=== PATIENT | female | born 1955 | race Caucasian/White ===

== ENCOUNTER → 2019-01-05 | Outpatient (CLI) | payer BC | LOC: COL.RAD 10:11 | DX: M47.812 Spondylosis without myelopathy or radiculopathy, cervical region (principal); M89.38 Hypertrophy of bone, other site; M48.02 Spinal stenosis, cervical region ==

== ENCOUNTER → 2019-01-28 | Outpatient (CLI) | payer BC | LOC: COL.RAD 01-22 09:45 | DX: M51.34 Other intervertebral disc degeneration, thoracic region (principal); M51.24 Other intervertebral disc displacement, thoracic region ==

== ENCOUNTER → 2019-02-08 | Outpatient (CLI) | payer BC | LOC: MHCPAIN 09:48 | DX: G89.29 Other chronic pain (principal); M47.814 Spondylosis without myelopathy or radiculopathy, thoracic region; M47.812 Spondylosis without myelopathy or radiculopathy, cervical region | CPT/HCPCS: G0463 ==

== ENCOUNTER → 2019-02-11 | Outpatient (CLI) | payer BC | LOC: MHCPAIN 08:54 | DX: M47.814 Spondylosis without myelopathy or radiculopathy, thoracic region (principal); M54.14 Radiculopathy, thoracic region ==

== ENCOUNTER → 2019-02-18 | Outpatient (CLI) | payer BC | LOC: MHCPAIN 09:49 | DX: M47.814 Spondylosis without myelopathy or radiculopathy, thoracic region (principal); G89.29 Other chronic pain | CPT/HCPCS: G0463 ==

== ENCOUNTER → 2019-04-05 | Outpatient (CLI) | payer BC | LOC: MHCPAIN 08:59 | DX: G89.29 Other chronic pain (principal); M47.814 Spondylosis without myelopathy or radiculopathy, thoracic region | CPT/HCPCS: G0463 ==

== ENCOUNTER → 2019-04-08 | Outpatient (CLI) | payer BC | LOC: MHCPAIN 12:56 | DX: M47.814 Spondylosis without myelopathy or radiculopathy, thoracic region (principal); M54.12 Radiculopathy, cervical region ==

== ENCOUNTER → 2019-04-29 | Outpatient (CLI) | payer BC | LOC: MHCPAIN 04-19 15:33 | DX: M47.814 Spondylosis without myelopathy or radiculopathy, thoracic region (principal); M54.12 Radiculopathy, cervical region; G89.29 Other chronic pain | CPT/HCPCS: G0463 ==

== ENCOUNTER → 2019-07-08 | Outpatient (CLI) | payer BC | LOC: MHCPAIN 13:39 | DX: M54.6 Pain in thoracic spine (principal) | CPT/HCPCS: J1100; J2250; J3010 ==

== ENCOUNTER → 2019-08-31 | Outpatient (CLI) | payer BC | LOC: MHCPAIN 09:42 | DX: M47.814 Spondylosis without myelopathy or radiculopathy, thoracic region (principal); G89.29 Other chronic pain | CPT/HCPCS: G0463 ==

== ENCOUNTER → 2019-09-23 | Outpatient (CLI) | payer BC | LOC: MHCPAIN 12:13 | DX: M47.814 Spondylosis without myelopathy or radiculopathy, thoracic region (principal) | CPT/HCPCS: J1040; J1100; J2250; J3010 ==

== ENCOUNTER → 2023-07-29 | Outpatient (CLI) | payer MEDICARE, OTHER ==
[~2023-07-29] MED LIST: CEPHALEXIN500 M1 PO; CRESTOR5 MG PO; FLEXERIL 1010 MG/TAB PO; HCTZ 25MG TAB25 MG PO; NAPROSYN500 MG PO; PERCOCET 325 MG1 TA2 PO; PRIL40 PO; TIROSINT150 MC1 PO; TOPROL XL 50MG50 MG PO; ZOFRAN ODT4 MG PO
== END ==
LOC: MHCPAIN 14:05
DX: M47.897 Other spondylosis, lumbosacral region (principal); M54.16 Radiculopathy, lumbar region; M51.36 Other intervertebral disc degeneration, lumbar region; I10 Essential (primary) hypertension
CPT/HCPCS: G0463

== ENCOUNTER → 2023-08-07 | Outpatient (CLI) | payer MEDICARE, OTHER ==
[~2023-08-07] MED LIST changes: +Iohexol 300 - 10 ML VIAL ONE; +Lidocaine PF 2% (20 MG/ML) 2 ML VIAL ONE
== END ==
LOC: MHCPAIN 12:38
DX: M54.16 Radiculopathy, lumbar region (principal)
CPT/HCPCS: J1100; Q9967

== ENCOUNTER → 2023-10-30 | Outpatient (CLI) | payer MEDICARE, OTHER ==
[~2023-10-30] MED LIST changes: -Iohexol 300 - 10 ML VIAL ONE; -Lidocaine PF 2% (20 MG/ML) 2 ML VIAL ONE
== END ==
LOC: MHCPAIN 10:48
DX: M47.817 Spondylosis without myelopathy or radiculopathy, lumbosacral region (principal); M54.50 Low back pain, unspecified
CPT/HCPCS: J0665

== ENCOUNTER 2024-03-11 14:40 | Outpatient (CLI) | payer MEDICARE, OTHER ==
[~2024-03-11] VITALS: Ht 157.5 cm; Wt 72.7 kg
[2024-03-11] MEDS ORDERED: NS Flush 25 ML IV Bag IV PRN (15:00)
[2024-03-11] MEDS ORDERED: LEVOXYL0.1 MG PO (15:06)
[2024-03-11] MEDS ORDERED: NORCO 325 MG-101 TAB PO (15:07)
[2024-03-11] MEDS ORDERED: CYMBALTA 60MG60 MG PO (15:08)
[2024-03-11] MEDS ORDERED: AMBIEN 10MG10 MG PO (15:08)
[2024-03-11] MEDS ORDERED: VITAMIN C500 MG PO (15:08)
[2024-03-11] MEDS ORDERED: ATIVAN 0.50.5 MG/TAB PO (15:09)
--- NOTE | 2024-03-11 15:40 | NUR ---
PT TOLERATED INFUSION WELL. PT REMAINED FREE FROM ACUTE CONCERNS AND COMPLAINTS. PT AMBULATED TO [facility] UPON DISCHARGE. IV DISCONTINUED.
== END 2024-03-11 15:41 | disposition home or self-care (01) ==
LOC: EUO 14:40
DX: M81.0 Age-related osteoporosis without current pathological fracture (principal)
CPT/HCPCS: J3489